=== PATIENT | male | born 1985 | race Hispanic/Latino ===

== ENCOUNTER 2021-03-06 01:57 | Emergency (ER) | payer SELFPAY ==
[~2021-03-06] VITALS: Ht 172.7 cm; Wt 90.0 kg
[2021-03-06 03:47] VITALS: BP 128/78
== END 2021-03-06 03:47 | disposition home or self-care (01) | DRG 153 ==
LOC: ED 01:57
DX: J02.9 Acute pharyngitis, unspecified (principal); Z86.16 Personal history of COVID-19; Z20.822 Contact with and (suspected) exposure to COVID-19